=== PATIENT | male | born 1965 | race Caucasian/White ===

== ENCOUNTER 2017-06-28 17:58 | Inpatient (IN) ==
[2017-06-28] MEDS ORDERED: ONDANSETRON 4 MG/2 ML VIAL IV STA (18:39)
[2017-06-28] MEDS ORDERED: ONDANSETRON ODT 4 MG TABLET PO STA (18:39)
[2017-06-28] MEDS ORDERED: MECLIZINE 25 MG TABLET PO STA (18:39)
[2017-06-28] MEDS ORDERED: MEPERIDINE 25 MG/1 ML VIAL IV STA (18:41)
[2017-06-28 18:48] LABS: Basophils # 0.1 10*3/uL (0.0-0.2); Basophils % 0.6 % (0.0-0.8); Eosinophils # 0.2 10*3/uL (0.0-0.87); Hematocrit 43.9 VOL% (42.0-52.0); Hemoglobin 15.3 GM/DL (14.0-18.0); Immature Granulocytes % 0.5 %; Immature Granulocytes Absolute 0.04 #; Lymphocytes # 2.1 10*3/uL (1.4-4.0); Lymphocytes % 27.3 % (21.2-54.2); Mean Corpuscular HGB Conc 34.9 GM/DL (32-36); Mean Corpuscular Hemoglobin 33 PG (27-34); Mean Corpuscular Volume 94.2 FL (87-102); Mean Platelet Volume 11.4 FL (9.6-12.0); Monocytes # 0.8 10*3/uL (0.11-0.8); Monocytes % 9.7 % (1.7-12.7); Neutrophils # 4.7 10*3/uL (1.4-7.4); Neutrophils % 59.9 % (38.7-73.9); Platelet Count 168 T/CUMM (130-400); Red Blood Count 4.66 MC/CUMM (3.8-5.5); Red Cell Distribution Width 12.7 % (9.3-17.3); White Blood Count 7.8 T/CUMM (4-12)
[2017-06-28 18:54] LABS: INR 1.1; PT Patient Result 11.1 SECS
[2017-06-28 19:04] LABS: Alanine Aminotransferase 92 U/L (16-61); Albumin 3.6 G/DL (3.4-5.0); Alkaline Phosphatase 61 U/L (45-117); Aspartate Amino Transferase 43 U/L (0-37); Blood Urea Nitrogen 16 MG/DL (7-18); Glucose 117 MG/DL (74-106); Osmolality,Calculated 280.4 MOS/KG (273-304); Potassium 3.7 MMOL/L (3.5-5.1); Sodium 140 MMOL/L (136-145); Total Protein 7.5 G/DL (6.4-8.3); Troponin I Only < 0.015 NG/ML (0.00-0.045)
[2017-06-28] MEDS ORDERED: MEPERIDINE 25 MG/1 ML VIAL ONE ×2 (19:14→19:15)
[2017-06-28] MEDS ORDERED: MECLIZINE 25 MG TABLET ONE (19:14)
[2017-06-28] MEDS ORDERED: ONDANSETRON 4 MG/2 ML VIAL ONE (19:14)
[2017-06-28] MEDS ORDERED: SUMAtriptan 6 MG/0.5 ML VIAL SUBCUT STA (20:18)
[2017-06-28] MEDS ORDERED: SUMAtriptan 6 MG/0.5 ML VIAL SUBCUT ONE (20:29)
[2017-06-28] MEDS ORDERED: HYDROmorphone 2 MG/1 ML VIAL IV PRN (21:35)
[2017-06-28] MEDS ORDERED: hydrALAZINE 20 MG/1 ML VIAL IV PRN (21:35)
[2017-06-28] MEDS ORDERED: ONDANSETRON 4 MG/2 ML VIAL IV PRN (21:35)
[2017-06-28] MEDS ORDERED: NICOTINE 21 MG/24 HR PATCH TRANSDERM PRN (21:35)
[2017-06-28] MEDS: DOCUSATE SODIUM 100 MG CAPSULE PO SCH (22:03)
[2017-06-28] MEDS: SODIUM CHLORIDE 0.9% 1,000 ML IV SCH (22:03)
[2017-06-29 02:29] LABS: Apearance,Urine CLEAR (Clear); Bilirubin,Urine Negative (Negative); Blood, Urine Negative (Negative); Calcium Oxalate Crystals,Urine Occasional /HPF (Few); Glucose,Urine (UA) Negative (Negative); Ketones,Urine Negative (Negative); Mucus,Urine Occasional /LPF (Occasional); Nitrite,Urine Negative (Negative); Protein,Urine Negative; RBC,Urine 1 /HPF (0-4); Squamous Epithelial Cell,Urine Occasional /HPF (0-10); Urine Color Yellow (Yellow); Urine Specific Gravity 1.025 (1.001-1.035); Urine Urobilinogen < 2.0 EU/DL (0.2-1.0); WBC,Urine 2 /HPF (0-6)
[2017-06-29 05:30] LABS: Barbiturates Screen,Urine Negative (Negative); Benzodiazepines Screen,Urine Negative (Negative); Cannabinoid Screen,Urine Negative (Negative); Opiate Screen,Urine Positive (Negative); Phencyclidine Screen,Urine Negative (Negative)
[2017-06-29] MEDS: BISOPROLOL/HCTZ 5-6.25 MG TABLET PO SCH (08:53)
[2017-06-29] MEDS: DOCUSATE SODIUM 100 MG CAPSULE PO SCH ×2 (08:53→22:36)
[2017-06-29] MEDS: PANTOPRAZOLE 40 MG TABLET PO SCH (08:53)
[2017-06-29] MEDS: ENOXAPARIN 40 MG/0.4 ML SYRINGE SUBCUT SCH (08:54)
[2017-06-29 15:23] LABS: Risk Ratio 5.77; VLDL CHOLESTEROL 104.4 MG/DL
[2017-06-29] MEDS: ASPIRIN EC 81 MG TABLET PO SCH (15:59)
[2017-06-29] MEDS ORDERED: traZODone 50 MG TABLET PO PRN (20:16)
[2017-06-30] MEDS: SODIUM CHLORIDE 0.9% 1,000 ML IV SCH (02:33)
[2017-06-30] MEDS: BISOPROLOL/HCTZ 5-6.25 MG TABLET PO SCH (09:39)
[2017-06-30] MEDS: ASPIRIN EC 81 MG TABLET PO SCH (09:39)
[2017-06-30] MEDS: PANTOPRAZOLE 40 MG TABLET PO SCH (09:39)
[2017-06-30] MEDS: DOCUSATE SODIUM 100 MG CAPSULE PO SCH (09:39)
[2017-06-30] MEDS: ENOXAPARIN 40 MG/0.4 ML SYRINGE SUBCUT SCH (09:41)
[2017-06-30 12:31] VITALS: BP 132/92
[2017-06-30] MEDS ORDERED: ATORVASTATIN 20 MG TABLET PO SCH (21:00)
== END 2017-06-30 13:30 | disposition home or self-care (01) | DRG 79 ==
LOC: N.ED 17:58 → N.EDINP 20:21 → N.2E 20:52
PROVIDERS: ADMIT Internal Medicine; ATTEND Internal Medicine